=== PATIENT | male | born 1970 | race African-American/Black ===

== ENCOUNTER 2017-10-19 15:42 | Emergency (ER) | payer BC, SELFPAY ==
[2017-10-19] MEDS ORDERED: Water For Inject, Bacteriostat 30 ML ONE (18:25)
[2017-10-19] MEDS ORDERED: methylPREDNISolone Sod Succ/PF 125 MG/2 ML VIAL ONE (18:25)
[2017-10-19] MEDS ORDERED: Ketorolac Tromethamine 60 MG/2 ML VIAL ONE (18:25)
--- NOTE | 2017-10-19 18:34 | RAD ---
PA AND LATERAL VIEWS CHEST 10/19/17 HISTORY: Cough. FINDINGS: Comparison is made to exam of 05/24/14. There are changes of median sternotomy. The heart size is normal. The lungs are well expanded without focal areas of consolidation, pneumothorax or pleural effusions. No acute osseous abnormalities are seen. IMPRESSION: No radiographic evidence of acute cardiopulmonary process. POS: [facility]
== END 2017-10-19 18:49 | disposition home or self-care (01) ==
LOC: ERS 15:42
DX: J20.9 Acute bronchitis, unspecified (principal); I25.10 Atherosclerotic heart disease of native coronary artery without angina pectoris; E11.9 Type 2 diabetes mellitus without complications
CPT/HCPCS: 71046; 96372; J1885; J2930

== ENCOUNTER 2017-10-23 10:33 | Emergency (ER) | payer BC | END 2017-10-23 12:00 | disposition home or self-care (01) | LOC: ERS 10:33 | DX: B34.9 Viral infection, unspecified (principal); I10 Essential (primary) hypertension; I25.10 Atherosclerotic heart disease of native coronary artery without angina pectoris; E11.9 Type 2 diabetes mellitus without complications | CPT/HCPCS: 87804; 99283 ==

== ENCOUNTER 2018-03-21 13:27 | Emergency (ER) | payer BC ==
[2018-03-21] MEDS ORDERED: hydrALAZINE 20 MG/ML VIAL ONE (13:55)
[2018-03-21 14:15] LABS: #Lymphocytes 1.6 thou/uL (1.20-3.40); #Monocytes 0.6 thou/uL (0.11-0.59); #Neutrophils 3.4 thou/uL (1.40-6.50); %Basophils 0.4 % (0.0-1.0); %Eosinophils 0.7 % (0.0-10.0); %Monocytes 10.8 % (0.0-10.0); Hemoglobin 14.2 g/dL (14.0-18.0); Mean Corpuscular HGB CONC 32.6 g/dL (32.0-36.0); Mean Corpuscular Hemoglobin 29.6 pg (27.0-31.0); Mean Corpuscular Volume 90.8 fl (80.0-94.0); Mean Platelet Volume 7.5 fL (7.4-10.4); Platelet Count 308 thou/uL (130-400); RBC Distribution Width 11.5 % (11.5-14.5); Red Blood Cell (RBC) Count 4.78 mill/uL (4.70-6.10); White Blood Cell (WBC) Count 5.7 thou/uL (4.8-10.8)
--- NOTE | 2018-03-21 14:15 | CT ---
CT HEAD NONCONTRAST: HISTORY: Headache. FINDINGS: There is no evidence of acute intracranial hemorrhage or infarct. Ventricles appear normal in size, shape, and position. There is no mass effect or shift of midline structures. Mild chronic ischemic small-vessel disease within the frontal periventricular white matter. Visualized paranasal sinuses r emain well aerated. IMPRESSION: No acute intracranial abnormalities are demonstrated on noncontrast CT head. POS: [facility]
[2018-03-21 14:38] LABS: ALT (SGPT) 12 U/L (8-55); AST (SGOT) 23 U/L (5-34); Alkaline Phosphatase 50 U/L (40-150); Anion Gap 13 mmol/L (10-20); BUN (Urea Nitrogen) 15 mg/dL (8.9-20.6); Bilirubin, Total 0.5 mg/dL (0.2-1.2); Calc. Creatinine Clearance 0 mL/min (70-130); Calcium 9.1 mg/dL (7.8-10.44); Carbon Dioxide 23 mmol/L (22-29); Chloride 100 mmol/L (98-107); Estimated GFR-MDRD 90; Globulin 3.1 g/dL (2.4-3.5); Glucose 273 mg/dL (70-105); Potassium 4.4 mmol/L (3.5-5.1); Protein, Total 7.1 g/dL (6.0-8.3); Sodium 132 mmol/L (136-145)
[2018-03-21 14:43] LABS: CKMB 2.2 ng/mL (0-6.6); Troponin I Less than 0.010 ng/mL (< 0.028)
[2018-03-21] MEDS ORDERED: Ketorolac Tromethamine 30 MG/ML VIAL ONE (14:55)
== END 2018-03-21 15:08 | disposition home or self-care (01) ==
LOC: ERS 13:27
DX: I10 Essential (primary) hypertension (principal); R51 Headache; I25.10 Atherosclerotic heart disease of native coronary artery without angina pectoris; E11.9 Type 2 diabetes mellitus without complications; Z79.82 Long term (current) use of aspirin
CPT/HCPCS: 70450; 80053; 82553; 84484; 85025; 93005; 96374; 96375; J0360; J1885

== ENCOUNTER 2019-03-11 09:51 | Emergency (ER) | payer BC, SELFPAY ==
[2019-03-11] MEDS ORDERED: HYDROcodone/Acetaminophen 10/325 mg Tablet ONE (10:44)
[2019-03-11] MEDS ORDERED: Diazepam 5 MG TAB ONE (10:44)
[2019-03-11] MEDS ORDERED: Dexamethasone 4 MG TAB ONE (10:45)
[2019-03-11] MEDS ORDERED: PROPOFOL 20 ML ONE (11:58)
[2019-03-11] MEDS ORDERED: Propofol 500 MG/50 ML VIAL ONE (11:58)
== END 2019-03-11 12:20 | disposition home or self-care (01) ==
LOC: ERS 09:51
DX: M54.42 Lumbago with sciatica, left side (principal)
CPT/HCPCS: 99283; J2704; J8540

== ENCOUNTER 2019-10-25 11:23 | Emergency (ER) | payer SELFPAY ==
[2019-10-25] MEDS ORDERED: Proparacaine 0.5% Opth 15 ML BOT ONE (12:27)
[2019-10-25 12:43] LABS: #Eosinphils 0.1 thou/uL (0.0-0.7); #Lymphocytes 1.5 thou/uL (1.20-3.40); #Monocytes 0.9 thou/uL (0.11-0.59); #Neutrophils 4.3 thou/uL (1.40-6.50); %Basophils 0.7 % (0.0-1.0); %Eosinophils 1.2 % (0.0-10.0); %Lymphocytes 21.5 % (21.0-51.0); %Neutrophils 63.6 % (42.0-75.0); Mean Corpuscular HGB CONC 32.1 g/dL (32.0-36.0); Mean Corpuscular Hemoglobin 29.6 pg (27.0-31.0); Mean Corpuscular Volume 92.2 fL (78.0-98.0); Platelet Count 286 thou/uL (130-400); RBC Distribution Width 11.6 % (11.5-14.5); Red Blood Cell (RBC) Count 4.72 mill/uL (4.70-6.10); White Blood Cell (WBC) Count 6.8 thou/uL (4.8-10.8)
[2019-10-25 13:02] LABS: Anion Gap 9 mmol/L (10-20); BUN (Urea Nitrogen) 13 mg/dL (8.4-25.7); Calc. Creatinine Clearance 0 mL/min (70-130); Calcium 9.3 mg/dL (7.8-10.44); Carbon Dioxide 33 mmol/L (22-29); Chloride 101 mmol/L (98-107); Estimated GFR-MDRD 69; Glucose 281 mg/dL (70-105); Potassium 5.1 mmol/L (3.5-5.1); Sodium 138 mmol/L (136-145)
--- NOTE | 2019-10-25 13:04 | CT ---
CT BRAIN NONCONTRAST: DATE: 10/25/2019 HISTORY: 49-year-old male with pain and vision loss in left eye acutely. COMPARISON: 03/21/2018. FINDINGS: There is no midline shift or any other mass effect. There is no evidence of acute intracranial hemor rhage, large cortical infarct, obstructive hydrocephalus, or extraaxial fluid collection. The calvar ium is intact. There are chronic ischemic white matter changes of the cerebrum. There is no interval change since 03/21/2018. IMPRESSION: 1. No acute intracranial findings. 2. Chronic ischemic white matter changes (small vessel disease). jn r POS: [facility]
== END 2019-10-25 13:58 | disposition home or self-care (01) ==
LOC: ERS 11:23
DX: H54.62 Unqualified visual loss, left eye, normal vision right eye (principal); E11.9 Type 2 diabetes mellitus without complications; I10 Essential (primary) hypertension; Z79.899 Other long term (current) drug therapy; Z79.84 Long term (current) use of oral hypoglycemic drugs
CPT/HCPCS: 36415; 70450; 80048; 85025

== ENCOUNTER 2019-12-06 12:03 | Emergency (ER) | payer SELFPAY ==
[2019-12-06] MEDS ORDERED: Ketorolac Tromethamine 30 MG/ML VIAL ONE (13:26)
== END 2019-12-06 13:54 | disposition home or self-care (01) ==
LOC: ERS 12:03
DX: M54.41 Lumbago with sciatica, right side (principal); E11.9 Type 2 diabetes mellitus without complications; I25.10 Atherosclerotic heart disease of native coronary artery without angina pectoris; I10 Essential (primary) hypertension; J42 Unspecified chronic bronchitis; Z79.84 Long term (current) use of oral hypoglycemic drugs; Z79.899 Other long term (current) drug therapy
CPT/HCPCS: 96372; 99283; J1885

== ENCOUNTER 2019-12-13 22:18 | Emergency (ER) | payer SELFPAY ==
[2019-12-14] MEDS ORDERED: HYDROcodone/Acetaminophen 5/325 mg Tablet ONE (00:32)
== END 2019-12-14 00:46 | disposition home or self-care (01) ==
LOC: ERS 22:18
DX: H54.62 Unqualified visual loss, left eye, normal vision right eye (principal); I10 Essential (primary) hypertension; E11.9 Type 2 diabetes mellitus without complications; H57.12 Ocular pain, left eye; I25.10 Atherosclerotic heart disease of native coronary artery without angina pectoris; Z79.84 Long term (current) use of oral hypoglycemic drugs; Z79.899 Other long term (current) drug therapy
CPT/HCPCS: 99283

== ENCOUNTER 2021-04-16 10:12 | Outpatient (CLI) | payer OTHER, SELFPAY | END 2021-04-16 10:13 | disposition home or self-care (01) | LOC: BICRAD 10:12 | PROVIDERS: ATTEND Internal Medicine | DX: Z02.71 Encounter for disability determination (principal) | CPT/HCPCS: 71046; 72100 ==

== ENCOUNTER 2022-10-05 10:04 | Emergency (ER) | payer SELFPAY ==
[2022-10-05 11:51] LABS: #Eosinphils 0.1 thou/uL (0.0-0.7); #Lymphocytes 1.7 thou/uL (1.20-3.40); #Monocytes 1.4 thou/uL (0.11-0.59); #Neutrophils 7.8 thou/uL (1.40-6.50); %Basophils 0.3 % (0.0-1.0); %Eosinophils 0.5 % (0.0-10.0); %Lymphocytes 15.6 % (21.0-51.0); %Monocytes 12.3 % (0.0-10.0); %Neutrophils 71.3 % (42.0-75.0); Hemoglobin 11.9 g/dL (14.0-18.0); Mean Corpuscular HGB CONC 33.6 g/dL (32.0-36.0); Mean Corpuscular Hemoglobin 31.7 pg (27.0-31.0); Mean Corpuscular Volume 94.2 fl (78.0-98.0); Mean Platelet Volume 7.6 fL (7.4-10.4); Platelet Count 384 10x3/uL (130-400); RBC Distribution Width 11.3 % (11.5-14.5); Red Blood Cell (RBC) Count 3.76 mill/uL (4.70-6.10)
[2022-10-05] MEDS ORDERED: Albuterol 200 PUFF (6.7GM INHALER) ONE (11:56)
[2022-10-05 12:02] LABS: ALT (SGPT) 12 U/L (8-55); AST (SGOT) 14 U/L (5-34); Albumin 3.7 g/dL (3.5-5.0); Alkaline Phosphatase 54 U/L (40-110); Anion Gap 13 mmol/L (10-20); BUN (Urea Nitrogen) 10 mg/dL (8.4-25.7); Bilirubin, Total 0.5 mg/dL (0.2-1.2); Calc. Creatinine Clearance 0 mL/min (70-130); Calcium 9.1 mg/dL (7.8-10.44); Carbon Dioxide 28 mmol/L (22-29); Chloride 101 mmol/L (98-107); Estimated GFR 70; Globulin 3.4 g/dL (2.4-3.5); Glucose 221 mg/dL (70-105); Potassium 3.9 mmol/L (3.5-5.1); Protein, Total 7.1 g/dL (6.0-8.3); Sodium 138 mmol/L (136-145)
[2022-10-05 12:32] LABS: CKMB 0.8 ng/mL (0-6.6)
[2022-10-05 15:16] LABS: SARS-CoV-2 NAA Rapid Test Not Detected (NotDetected)
[2022-10-05 16:01] LABS: CKMB 0.7 ng/mL (0-6.6)
== END 2022-10-05 16:24 | disposition home or self-care (01) ==
LOC: ERS 10:04
DX: J18.9 Pneumonia, unspecified organism (principal); I10 Essential (primary) hypertension; E11.9 Type 2 diabetes mellitus without complications; Z20.822 Contact with and (suspected) exposure to COVID-19
CPT/HCPCS: 36415; 71045; 80053; 82553; 83880; 84484; 85025; 93005; 94664

== ENCOUNTER 2023-01-22 12:06 | Inpatient (IN) | payer SELFPAY ==
[2023-01-22] MEDS ORDERED: levETIRAcetam 500 MG/5 ML VIAL ONE (12:29)
[2023-01-22 12:48] LABS: #Lymphocytes 1.5 thou/uL (1.20-3.40); #Monocytes 0.8 thou/uL (0.11-0.59); #Neutrophils 4.4 thou/uL (1.40-6.50); %Basophils 0.5 % (0.0-1.0); %Eosinophils 0.4 % (0.0-10.0); %Lymphocytes 22.3 % (21.0-51.0); %Monocytes 11.2 % (0.0-10.0); %Neutrophils 65.6 % (42.0-75.0); Hemoglobin 12.8 g/dL (14.0-18.0); Mean Corpuscular HGB CONC 31.6 g/dL (32.0-36.0); Mean Platelet Volume 8.1 fL (7.4-10.4); Platelet Count 273 10x3/uL (130-400); RBC Distribution Width 11.3 % (11.5-14.5); Red Blood Cell (RBC) Count 4.25 mill/uL (4.70-6.10); White Blood Cell (WBC) Count 6.7 10x3/uL (4.8-10.8)
[2023-01-22 13:10] LABS: ALT (SGPT) 17 U/L (8-55); AST (SGOT) 19 U/L (5-34); Albumin 3.8 g/dL (3.5-5.0); Alkaline Phosphatase 37 U/L (40-110); Anion Gap 13 mmol/L (10-20); BUN (Urea Nitrogen) 18 mg/dL (8.4-25.7); Bilirubin, Total 0.7 mg/dL (0.2-1.2); Calc. Creatinine Clearance 0 mL/min (70-130); Calcium 8.9 mg/dL (7.8-10.44); Carbon Dioxide 26 mmol/L (22-29); Chloride 103 mmol/L (98-107); Estimated GFR 50; Globulin 2.8 g/dL (2.4-3.5); Glucose 168 mg/dL (70-105); Potassium 3.9 mmol/L (3.5-5.1); Protein, Total 6.6 g/dL (6.0-8.3); Sodium 138 mmol/L (136-145)
[2023-01-22] MEDS ORDERED: Acetaminophen 325 MG TAB PO PRN (14:23)
[2023-01-22] MEDS ORDERED: Ondansetron ODT 4 MG TAB PO PRN (14:23)
[2023-01-22] MEDS ORDERED: Acetaminophen 650 MG Suppository PR PRN (14:23)
[2023-01-22] MEDS ORDERED: Calcium Carbonate 500 MG ChewTAB PO PRN (14:23)
[2023-01-22] MEDS ORDERED: Ondansetron PF 4 MG/2 ML Vial IVP PRN (14:23)
[2023-01-22] MEDS ORDERED: Senokot S 8.6-50 MG TAB PO PRN (14:23)
[2023-01-22] MEDS ORDERED: Lorazepam 2 MG/ML VIAL SLOW IVP PRN (14:25)
[2023-01-22] MEDS ORDERED: Dextrose 50% Abboject 50 ML SYRINGE SLOW IVP PRN (14:39)
[2023-01-22] MEDS ORDERED: HumaLOG 300 UNITS/3 ML VIAL SC PRN ×2 (14:39)
[2023-01-22] MEDS ORDERED: Dextrose 5% in Water 1,000 ML IV PRN (14:39)
[2023-01-22] MEDS: Lactated Ringer's 1,000 ML IV SCH (15:23)
[2023-01-22] MEDS: metFORMIN 500 MG TAB PO SCH (17:58)
[2023-01-22] MEDS: Atorvastatin Calcium 40 MG TAB PO SCH (21:19)
[2023-01-22] MEDS: Carvedilol 3.125 MG TAB PO SCH (21:19)
[2023-01-22] MEDS: levETIRAcetam 500 MG/5 ML VIAL SLOW IVP SCH (21:19)
[2023-01-22] MEDS ORDERED: LORazepam 2 MG/ML SYR.(CARPUJECT) ONE (22:40)
[2023-01-23] MEDS ORDERED: Lorazepam 2 MG/ML VIAL SLOW IVP SCH (04:45)
[2023-01-23] MEDS: Lactated Ringer's 1,000 ML IV SCH ×2 (05:05→17:37)
[2023-01-23 07:02] LABS: #Lymphocytes 1.7 thou/uL (1.20-3.40); #Monocytes 0.9 thou/uL (0.11-0.59); #Neutrophils 4.6 thou/uL (1.40-6.50); %Basophils 0.1 % (0.0-1.0); %Eosinophils 0.6 % (0.0-10.0); %Monocytes 12.1 % (0.0-10.0); %Neutrophils 63.2 % (42.0-75.0); Hemoglobin 12.2 g/dL (14.0-18.0); Mean Corpuscular HGB CONC 32.7 g/dL (32.0-36.0); Mean Corpuscular Volume 94.9 fl (78.0-98.0); Mean Platelet Volume 8.1 fL (7.4-10.4); Platelet Count 256 10x3/uL (130-400); RBC Distribution Width 11.2 % (11.5-14.5); Red Blood Cell (RBC) Count 3.93 mill/uL (4.70-6.10); White Blood Cell (WBC) Count 7.2 10x3/uL (4.8-10.8)
[2023-01-23 07:21] LABS: ALT (SGPT) 15 U/L (8-55); AST (SGOT) 17 U/L (5-34); Albumin 3.7 g/dL (3.5-5.0); Alkaline Phosphatase 36 U/L (40-110); Anion Gap 15 mmol/L (10-20); BUN (Urea Nitrogen) 16 mg/dL (8.4-25.7); Bilirubin, Total 0.7 mg/dL (0.2-1.2); Calc. Creatinine Clearance 69 mL/min (70-130); Calcium 9.2 mg/dL (7.8-10.44); Carbon Dioxide 25 mmol/L (22-29); Chloride 103 mmol/L (98-107); Estimated GFR 66; Globulin 2.8 g/dL (2.4-3.5); Glucose 110 mg/dL (70-105); Magnesium 1.9 mg/dL (1.6-2.6); Potassium 3.6 mmol/L (3.5-5.1); Protein, Total 6.5 g/dL (6.0-8.3); Sodium 139 mmol/L (136-145)
[2023-01-23] MEDS: metFORMIN 500 MG TAB PO SCH ×2 (08:00→18:36)
[2023-01-23] MEDS ORDERED: Magnesium 2 GM/50 ML(in water) 2 GM in Premix Bag 1 BAG IVPB SCH (08:15)
[2023-01-23 08:22] LABS: Bacteria/HPF None Seen HPF (None Seen); Bilirubin Negative (Negative); Blood, Urine Trace (Negative); CAUTI Indications for Culture Alt mental st,lethar; Clarity Clear (Clear); Glucose, Urine (Dipstick) Normal (Negative); Ketone, Urine 20 mg/dL (Negative); Leukocyte Negative Leu/uL (Negative); Nitrite Negative (Negative); Protein, Urine (Dipstick) 70 mg/dL (Neg-Trace); RBC/HPF 0-3 HPF (0-3); Specific Gravity, Urine 1.022 (1.002-1.036); Squamous Epithelial 0-3 HPF (0-3); Urobilinogen Normal mg/dL (Less than 2); WBC/HPF 0-3 HPF (0-3); pH, Urine 5.5 (5.0-9.0)
[2023-01-23 08:33] LABS: Urine Culture Reflex No No
[2023-01-23] MEDS: Carvedilol 3.125 MG TAB PO SCH (09:00)
[2023-01-23] MEDS ORDERED: Aspirin 325 mg Enteric Coated Tablet PO SCH (09:00)
[2023-01-23] MEDS ORDERED: Magnesium 2 GM/50 ML BAG (IN WATER) ONE (09:23)
[2023-01-23] MEDS: Potassium Chloride 10 MEQ/100 ML PREMIX BAG IVPB SCH ×2 (09:34→11:51)
[2023-01-23] MEDS ORDERED: levETIRAcetam 500 MG/5 ML VIAL ONE (09:34)
[2023-01-23] MEDS ORDERED: Aspirin 325 MG TAB ONE (10:23)
[2023-01-23] MEDS: levETIRAcetam 500 MG/5 ML VIAL SLOW IVP SCH ×2 (10:31→21:39)
[2023-01-23] MEDS ORDERED: LORazepam 2 MG/ML SYR.(CARPUJECT) ONE (12:27)
[2023-01-23 18:14] VITALS: BMI 24.3
[2023-01-23] MEDS ORDERED: Meclizine HCl 25 MG TAB PO PRN (18:36)
[2023-01-23] MEDS: Lorazepam 2 MG/ML VIAL SLOW IVP PRN (20:48)
[2023-01-23] MEDS: Atorvastatin Calcium 40 MG TAB PO SCH (20:50)
[2023-01-23] MEDS: Dorzolamide HCl 2% Ophth Soln 10 ml Bottle L EYE SCH (21:43)
[2023-01-23] MEDS: Brimonidine Tartrate 0.2% Ophth Soln 5 ml Bottle L EYE SCH (21:45)
[2023-01-23] MEDS: Timolol 0.5% Ophth Soln 5 ml Bottle L EYE SCH (21:47)
[2023-01-23] MEDS: prednisoLONE 1% Ophth Susp 5 ml Bottle L EYE SCH (21:48)
[2023-01-24] MEDS: Lorazepam 2 MG/ML VIAL SLOW IVP PRN (00:55)
[2023-01-24 06:01] LABS: #Lymphocytes 1.4 thou/uL (1.20-3.40); #Monocytes 1.1 thou/uL (0.11-0.59); #Neutrophils 7.3 thou/uL (1.40-6.50); %Basophils 0.2 % (0.0-1.0); %Eosinophils 0.4 % (0.0-10.0); %Lymphocytes 14.6 % (21.0-51.0); %Neutrophils 73.9 % (42.0-75.0); Mean Corpuscular Hemoglobin 31.8 pg (27.0-31.0); Mean Corpuscular Volume 93.4 fl (78.0-98.0); Mean Platelet Volume 8.4 fL (7.4-10.4); Platelet Count 243 10x3/uL (130-400); RBC Distribution Width 11.2 % (11.5-14.5); White Blood Cell (WBC) Count 9.9 10x3/uL (4.8-10.8)
[2023-01-24 06:06] LABS: Hemoglobin A1c 5.8 % (4.0-6.0)
[2023-01-24 06:21] LABS: Anion Gap 13 mmol/L (10-20); BUN (Urea Nitrogen) 11 mg/dL (8.4-25.7); Calc. Creatinine Clearance 83 mL/min (70-130); Calcium 9.2 mg/dL (7.8-10.44); Carbon Dioxide 26 mmol/L (22-29); Cardiac Risk 4.9 (Less than 4.5); Chloride 102 mmol/L (98-107); Cholesterol 221 mg/dl (< 200 Desired); Estimated GFR 94; Glucose 118 mg/dL (70-105); HDL Cholesterol 45 mg/dL (>60 Neg Risk); LDL Cholesterol, Calculated 157 mg/dL; Potassium 3.6 mmol/L (3.5-5.1); Sodium 137 mmol/L (136-145); Triglycerides 95 mg/dL (Less than 150)
[2023-01-24] MEDS: Lactated Ringer's 1,000 ML IV SCH (06:23)
[2023-01-24] MEDS: Brimonidine Tartrate 0.2% Ophth Soln 5 ml Bottle L EYE SCH ×3 (06:25→21:27)
[2023-01-24] MEDS: levETIRAcetam 500 MG/5 ML VIAL SLOW IVP SCH ×2 (08:34→21:21)
[2023-01-24] MEDS: metFORMIN 500 MG TAB PO SCH ×2 (08:34→18:17)
[2023-01-24] MEDS: Aspirin 81 mg Enteric Coated Tablet PO SCH (08:35)
[2023-01-24] MEDS: Famotidine 20 MG TAB PO SCH (08:35)
[2023-01-24] MEDS: Carvedilol 6.25 MG TAB PO SCH ×2 (08:35→18:18)
[2023-01-24] MEDS: Lisinopril 20 MG TAB PO SCH (08:35)
[2023-01-24] MEDS: Timolol 0.5% Ophth Soln 5 ml Bottle L EYE SCH ×2 (08:36→21:27)
[2023-01-24] MEDS: prednisoLONE 1% Ophth Susp 5 ml Bottle L EYE SCH ×2 (08:37→21:27)
[2023-01-24] MEDS: Dorzolamide HCl 2% Ophth Soln 10 ml Bottle L EYE SCH ×3 (08:37→21:27)
[2023-01-24] MEDS ORDERED: CYCLOPENTOLATE HCL L EYE SCH (09:00)
[2023-01-24] MEDS: Atorvastatin Calcium 40 MG TAB PO SCH (21:21)
[2023-01-25] MEDS: Brimonidine Tartrate 0.2% Ophth Soln 5 ml Bottle L EYE SCH ×3 (05:15→22:12)
[2023-01-25 06:00] LABS: #Eosinphils 0.1 thou/uL (0.0-0.7); #Lymphocytes 1.6 thou/uL (1.20-3.40); #Monocytes 1.2 thou/uL (0.11-0.59); %Basophils 0.2 % (0.0-1.0); %Eosinophils 1.1 % (0.0-10.0); %Lymphocytes 15.7 % (21.0-51.0); %Monocytes 11.7 % (0.0-10.0); %Neutrophils 71.3 % (42.0-75.0); Hemoglobin 11.9 g/dL (14.0-18.0); Mean Corpuscular HGB CONC 33.7 g/dL (32.0-36.0); Mean Corpuscular Hemoglobin 31.8 pg (27.0-31.0); Mean Corpuscular Volume 94.3 fl (78.0-98.0); Mean Platelet Volume 8.2 fL (7.4-10.4); Platelet Count 232 10x3/uL (130-400); RBC Distribution Width 11.2 % (11.5-14.5); Red Blood Cell (RBC) Count 3.74 mill/uL (4.70-6.10); White Blood Cell (WBC) Count 9.8 10x3/uL (4.8-10.8)
[2023-01-25 06:15] LABS: ALT (SGPT) 15 U/L (8-55); AST (SGOT) 16 U/L (5-34); Albumin 3.6 g/dL (3.5-5.0); Alkaline Phosphatase 38 U/L (40-110); Anion Gap 13 mmol/L (10-20); BUN (Urea Nitrogen) 14 mg/dL (8.4-25.7); Bilirubin, Total 0.8 mg/dL (0.2-1.2); Calc. Creatinine Clearance 75 mL/min (70-130); Carbon Dioxide 26 mmol/L (22-29); Chloride 103 mmol/L (98-107); Estimated GFR 83; Globulin 2.7 g/dL (2.4-3.5); Glucose 117 mg/dL (70-105); Potassium 3.8 mmol/L (3.5-5.1); Protein, Total 6.3 g/dL (6.0-8.3); Sodium 138 mmol/L (136-145)
[2023-01-25] MEDS: Carvedilol 6.25 MG TAB PO SCH ×2 (08:41→16:45)
[2023-01-25] MEDS: Lisinopril 20 MG TAB PO SCH (08:42)
[2023-01-25] MEDS: levETIRAcetam 500 MG/5 ML VIAL SLOW IVP SCH ×2 (08:42→20:28)
[2023-01-25] MEDS: metFORMIN 500 MG TAB PO SCH ×2 (08:42→16:45)
[2023-01-25] MEDS: Aspirin 81 mg Enteric Coated Tablet PO SCH (08:42)
[2023-01-25] MEDS: prednisoLONE 1% Ophth Susp 5 ml Bottle L EYE SCH ×2 (08:47→20:28)
[2023-01-25] MEDS: Dorzolamide HCl 2% Ophth Soln 10 ml Bottle L EYE SCH ×3 (08:50→20:34)
[2023-01-25] MEDS: Timolol 0.5% Ophth Soln 5 ml Bottle L EYE SCH ×2 (09:25→20:33)
[2023-01-25] MEDS: Famotidine 20 MG TAB PO SCH (09:26)
[2023-01-25] MEDS: Atorvastatin Calcium 40 MG TAB PO SCH (20:32)
[2023-01-26 00:05] LABS: GC N.gonorrhoeae PCR,UrineVOID *Indeterminate (NotDetected)
[2023-01-26 05:16] LABS: #Eosinphils 0.1 thou/uL (0.0-0.7); #Lymphocytes 1.8 thou/uL (1.20-3.40); #Monocytes 1.1 thou/uL (0.11-0.59); #Neutrophils 4.4 thou/uL (1.40-6.50); %Basophils 0.5 % (0.0-1.0); %Eosinophils 0.7 % (0.0-10.0); %Lymphocytes 24.8 % (21.0-51.0); %Monocytes 14.9 % (0.0-10.0); %Neutrophils 59.1 % (42.0-75.0); Hemoglobin 11.3 g/dL (14.0-18.0); Mean Corpuscular HGB CONC 32.6 g/dL (32.0-36.0); Mean Corpuscular Hemoglobin 30.5 pg (27.0-31.0); Mean Corpuscular Volume 93.5 fl (78.0-98.0); Mean Platelet Volume 8.6 fL (7.4-10.4); Platelet Count 232 10x3/uL (130-400); RBC Distribution Width 11.1 % (11.5-14.5); White Blood Cell (WBC) Count 7.4 10x3/uL (4.8-10.8)
[2023-01-26 05:53] LABS: ALT (SGPT) 13 U/L (8-55); AST (SGOT) 16 U/L (5-34); Albumin 3.6 g/dL (3.5-5.0); Alkaline Phosphatase 36 U/L (40-110); Anion Gap 14 mmol/L (10-20); BUN (Urea Nitrogen) 14 mg/dL (8.4-25.7); Bilirubin, Total 0.9 mg/dL (0.2-1.2); Calc. Creatinine Clearance 73 mL/min (70-130); Calcium 9.1 mg/dL (7.8-10.44); Carbon Dioxide 24 mmol/L (22-29); Chloride 104 mmol/L (98-107); Estimated GFR 82; Globulin 2.8 g/dL (2.4-3.5); Glucose 94 mg/dL (70-105); Potassium 3.5 mmol/L (3.5-5.1); Protein, Total 6.4 g/dL (6.0-8.3); Sodium 138 mmol/L (136-145)
[2023-01-26] MEDS: Brimonidine Tartrate 0.2% Ophth Soln 5 ml Bottle L EYE SCH ×3 (06:03→21:07)
[2023-01-26] MEDS: metFORMIN 500 MG TAB PO SCH ×2 (08:58→18:43)
[2023-01-26] MEDS: Carvedilol 6.25 MG TAB PO SCH ×2 (08:58→18:43)
[2023-01-26] MEDS: levETIRAcetam 500 MG/5 ML VIAL SLOW IVP SCH ×2 (08:59→21:07)
[2023-01-26] MEDS: Lisinopril 20 MG TAB PO SCH (08:59)
[2023-01-26] MEDS: Famotidine 20 MG TAB PO SCH (08:59)
[2023-01-26] MEDS: Aspirin 81 mg Enteric Coated Tablet PO SCH (08:59)
[2023-01-26] MEDS: prednisoLONE 1% Ophth Susp 5 ml Bottle L EYE SCH ×2 (09:00→21:06)
[2023-01-26] MEDS: Dorzolamide HCl 2% Ophth Soln 10 ml Bottle L EYE SCH ×3 (09:01→21:07)
[2023-01-26] MEDS: Timolol 0.5% Ophth Soln 5 ml Bottle L EYE SCH ×2 (09:01→21:06)
[2023-01-26 11:06] LABS: Syphilis Antibody Nonreactive (Nonreactive); Syphilis Antibody Index 0.03 S/CO (<1.00 Non-Reactive)
[2023-01-26] MEDS: Atorvastatin Calcium 40 MG TAB PO SCH (21:05)
[2023-01-27 05:27] LABS: #Eosinphils 0.1 thou/uL (0.0-0.7); #Lymphocytes 1.8 thou/uL (1.20-3.40); #Monocytes 1.1 thou/uL (0.11-0.59); #Neutrophils 4.8 thou/uL (1.40-6.50); %Basophils 0.1 % (0.0-1.0); %Eosinophils 0.9 % (0.0-10.0); %Monocytes 14.3 % (0.0-10.0); %Neutrophils 61.6 % (42.0-75.0); Hemoglobin 11.6 g/dL (14.0-18.0); Mean Corpuscular HGB CONC 32.8 g/dL (32.0-36.0); Mean Corpuscular Hemoglobin 30.7 pg (27.0-31.0); Mean Corpuscular Volume 93.7 fl (78.0-98.0); Mean Platelet Volume 8.3 fL (7.4-10.4); Platelet Count 248 10x3/uL (130-400); Red Blood Cell (RBC) Count 3.79 mill/uL (4.70-6.10); White Blood Cell (WBC) Count 7.7 10x3/uL (4.8-10.8)
[2023-01-27] MEDS: Brimonidine Tartrate 0.2% Ophth Soln 5 ml Bottle L EYE SCH (05:28)
[2023-01-27 05:54] LABS: ALT (SGPT) 13 U/L (8-55); AST (SGOT) 15 U/L (5-34); Albumin 3.8 g/dL (3.5-5.0); Alkaline Phosphatase 37 U/L (40-110); Anion Gap 13 mmol/L (10-20); BUN (Urea Nitrogen) 12 mg/dL (8.4-25.7); Bilirubin, Total 0.9 mg/dL (0.2-1.2); Calc. Creatinine Clearance 76 mL/min (70-130); Calcium 9.2 mg/dL (7.8-10.44); Carbon Dioxide 25 mmol/L (22-29); Chloride 105 mmol/L (98-107); Estimated GFR 84; Globulin 2.9 g/dL (2.4-3.5); Glucose 97 mg/dL (70-105); Potassium 3.5 mmol/L (3.5-5.1); Protein, Total 6.7 g/dL (6.0-8.3); Sodium 139 mmol/L (136-145)
[2023-01-27] MEDS ORDERED: Amlodipine 5 MG TAB PO SCH (09:00)
[2023-01-27] MEDS ORDERED: levETIRAcetam 500 MG/5 ML VIAL SLOW IVP SCH ×2 (09:15→21:00)
[2023-01-27] MEDS: metFORMIN 500 MG TAB PO SCH (09:46)
[2023-01-27] MEDS: Aspirin 81 mg Enteric Coated Tablet PO SCH (09:47)
[2023-01-27] MEDS: Carvedilol 6.25 MG TAB PO SCH (09:47)
[2023-01-27] MEDS: Famotidine 20 MG TAB PO SCH (09:47)
[2023-01-27] MEDS: Lisinopril 20 MG TAB PO SCH (09:47)
[2023-01-27] MEDS: Timolol 0.5% Ophth Soln 5 ml Bottle L EYE SCH (09:48)
[2023-01-27] MEDS: prednisoLONE 1% Ophth Susp 5 ml Bottle L EYE SCH (09:48)
[2023-01-27] MEDS: Dorzolamide HCl 2% Ophth Soln 10 ml Bottle L EYE SCH (09:49)
[2023-01-27 12:19] VITALS: BP 176/95; TEMP 97.7
== END 2023-01-27 14:56 | disposition home or self-care (01) | DRG 65 ==
LOC: SUATTDRO 12:06 → ERS 12:06 → ERHOLD 15:00 → OBSVTOIN 01-23 11:23 → NEURO 01-23 17:22
PROVIDERS: ADMIT Internal Medicine; ATTEND Internal Medicine
DX: I63.9 Cerebral infarction, unspecified (principal); G81.94 Hemiplegia, unspecified affecting left nondominant side; N17.9 Acute kidney failure, unspecified; I42.9 Cardiomyopathy, unspecified; R56.9 Unspecified convulsions; I10 Essential (primary) hypertension; E78.5 Hyperlipidemia, unspecified; D64.9 Anemia, unspecified; R45.1 Restlessness and agitation; R47.1 Dysarthria and anarthria; E11.9 Type 2 diabetes mellitus without complications; I25.10 Atherosclerotic heart disease of native coronary artery without angina pectoris; Z95.1 Presence of aortocoronary bypass graft; Z79.82 Long term (current) use of aspirin; Z79.84 Long term (current) use of oral hypoglycemic drugs; Z79.899 Other long term (current) drug therapy; Z82.49 Family history of ischemic heart disease and other diseases of the circulatory system
CPT/HCPCS: 36415; 36416; 70450; 70551; 80048; 80053; 80061; 81001; 83036; 83605; 83735; 84146; 85025; 86695; 86696; 86780; 87591; 93005; 95712; 95819; 95957; 96374; 96375; 96376; G0378; J1650; J1953; J2060; J3475; J3480; J7120

== ENCOUNTER 2023-02-01 23:48 | Observation (INO) | payer SELFPAY ==
[2023-02-02 00:48] LABS: Hemoglobin 12.3 g/dL (14.0-18.0); Mean Corpuscular HGB CONC 34.1 g/dL (32.0-36.0); Mean Corpuscular Hemoglobin 31.1 pg (27.0-31.0); Mean Platelet Volume 7.8 fL (7.4-10.4); Platelet Count 392 10x3/uL (130-400); RBC Distribution Width 11.2 % (11.5-14.5); Red Blood Cell (RBC) Count 3.97 mill/uL (4.70-6.10); White Blood Cell (WBC) Count 8.6 10x3/uL (4.8-10.8)
[2023-02-02 00:53] LABS: CK (CPK) 103 U/L (30-200); CRP (Inflammatory) Less than 0.50 mg/dL (= or < 0.5)
[2023-02-02 00:54] LABS: ALT (SGPT) 15 U/L (8-55); AST (SGOT) 16 U/L (5-34); Alkaline Phosphatase 42 U/L (40-110); Anion Gap 16 mmol/L (10-20); BUN (Urea Nitrogen) 14 mg/dL (8.4-25.7); Bilirubin, Total 0.8 mg/dL (0.2-1.2); Calc. Creatinine Clearance 0 mL/min (70-130); Calcium 8.8 mg/dL (7.8-10.44); Carbon Dioxide 25 mmol/L (22-29); Chloride 101 mmol/L (98-107); Estimated GFR 73; Globulin 3.2 g/dL (2.4-3.5); Glucose 125 mg/dL (70-105); Potassium 3.6 mmol/L (3.5-5.1); Protein, Total 7.2 g/dL (6.0-8.3); Sodium 138 mmol/L (136-145)
[2023-02-02 00:58] LABS: #Lymphocytes 2.1 thou/uL (1.20-3.40); #Monocytes 1.2 thou/uL (0.11-0.59); #Neutrophils 4.9 thou/uL (1.40-6.50); %Basophils 0.3 % (0.0-1.0); %Eosinophils 0.4 % (0.0-10.0); %Lymphocytes 25.4 % (21.0-51.0); %Monocytes 14.1 % (0.0-10.0); %Neutrophils 59.7 % (42.0-75.0)
[2023-02-02 07:31] VITALS: TEMP 97.4
[2023-02-02 08:12] VITALS: BMI 20.5
[2023-02-02] MEDS ORDERED: Senokot S 8.6-50 MG TAB PO PRN (10:46)
[2023-02-02] MEDS ORDERED: Ondansetron PF 4 MG/2 ML Vial IVP PRN (10:47)
[2023-02-02] MEDS ORDERED: Acetaminophen 325 MG TAB PO PRN (10:47)
[2023-02-02] MEDS ORDERED: Lisinopril 20 MG TAB PO SCH (11:00)
[2023-02-02] MEDS ORDERED: levETIRAcetam 500 MG TAB PO SCH ×2 (11:00→21:00)
[2023-02-02] MEDS ORDERED: Timolol 0.5% Ophth Soln 5 ml Bottle L EYE SCH ×2 (14:00→21:00)
[2023-02-02] MEDS ORDERED: Brimonidine Tartrate 0.2% Ophth Soln 5 ml Bottle L EYE SCH (14:00)
[2023-02-02] MEDS ORDERED: Dorzolamide HCl 2% Ophth Soln 10 ml Bottle L EYE SCH (15:00)
[2023-02-02 16:25] VITALS: BP 162/96
[2023-02-02] MEDS ORDERED: Carvedilol 25 MG TAB PO SCH (17:00)
[2023-02-02] MEDS ORDERED: prednisoLONE 1% Ophth Susp 5 ml Bottle L EYE SCH (21:00)
[2023-02-02] MEDS ORDERED: Atorvastatin Calcium 40 MG TAB PO SCH (21:00)
[2023-02-02] MEDS ORDERED: Famotidine 20 MG TAB PO SCH (21:00)
[2023-02-03] MEDS ORDERED: Lisinopril 20 MG TAB PO SCH (09:00)
[2023-02-03] MEDS ORDERED: Aspirin 81 mg Enteric Coated Tablet PO SCH (09:00)
[2023-02-03] MEDS ORDERED: Hydrochlorothiazide 25 MG TAB PO SCH (09:00)
== END 2023-02-02 16:56 | disposition home or self-care (01) ==
LOC: ERS 23:48 → T4-A 02-02 06:49
PROVIDERS: ADMIT Internal Medicine; ATTEND Internal Medicine
DX: R06.00 Dyspnea, unspecified (principal); G93.41 Metabolic encephalopathy; G40.909 Epilepsy, unspecified, not intractable, without status epilepticus; I10 Essential (primary) hypertension; I25.10 Atherosclerotic heart disease of native coronary artery without angina pectoris; E11.9 Type 2 diabetes mellitus without complications; I69.354 Hemiplegia and hemiparesis following cerebral infarction affecting left non-dominant side; Z79.82 Long term (current) use of aspirin; Z79.84 Long term (current) use of oral hypoglycemic drugs; Z79.899 Other long term (current) drug therapy; Z95.1 Presence of aortocoronary bypass graft
CPT/HCPCS: 36415; 36416; 71045; 71275; 80053; 82550; 83880; 84484; 85025; 86140; 93005; G0378

== ENCOUNTER 2023-10-23 09:55 | Inpatient (IN) | payer MEDICARE, OTHER, SELFPAY ==
[2023-10-23 10:30] LABS: Hematocrit 36.7 % (42.0-52.0); Hemoglobin 11.8 g/dL (14.0-18.0); Manual Diff?? YES; Mean Corpuscular HGB CONC 32.2 g/dL (32.0-36.0); Mean Corpuscular Hemoglobin 29.6 pg (27.0-31.0); Mean Platelet Volume 9.8 fL (7.4-10.4); Platelet Count 326 10x3/uL (130-400); RBC Distribution Width 12.2 % (11.5-14.5); Red Blood Cell (RBC) Count 3.99 mill/uL (4.70-6.10); White Blood Cell (WBC) Count 11.9 10x3/uL (4.8-10.8)
[2023-10-23 10:56] LABS: Delete Auto Diff?? YES
[2023-10-23 10:59] LABS: Troponin I Less than 0.010 ng/mL (< 0.028)
[2023-10-23 11:04] LABS: ALT (SGPT) 20 U/L (8-55); AST (SGOT) 19 U/L (5-34); Albumin 4.4 g/dL (3.5-5.0); Alkaline Phosphatase 48 U/L (40-110); Anion Gap 14 mmol/L (10-20); BUN (Urea Nitrogen) 15 mg/dL (8.4-25.7); Bilirubin, Total 0.8 mg/dL (0.2-1.2); Calc. Creatinine Clearance 0 mL/min (70-130); Calcium 9.6 mg/dL (7.8-10.44); Carbon Dioxide 25 mmol/L (22-29); Chloride 103 mmol/L (98-107); Estimated GFR 63; Globulin 3.2 g/dL (2.4-3.5); Glucose 150 mg/dL (70-105); Lipase 37 U/L (8-78); Potassium 4.4 mmol/L (3.5-5.1); Protein, Total 7.6 g/dL (6.0-8.3); Sodium 138 mmol/L (136-145)
[2023-10-23 11:27] LABS: CellaVision Operator ID LAB.KW3; Large Platelets 7.8 % (0-5); Lymphocytes 5 % (21-51); Monocytes 6 % (0-10); Neutrophil 89 % (42-75); Platelet Adequacy Comment Platelets Normal; RBC Morphology Within Normal Limits; Total Cell Count 103
[2023-10-23] MEDS ORDERED: Iopamidol-370 76% 500 ML MDV (1 ML CHARGE) ONE (12:33)
[2023-10-23 12:39] VITALS: BMI 20.1
[2023-10-23] MEDS ORDERED: Glucagon 1 MG/ML KIT IM PRN (13:04)
[2023-10-23] MEDS ORDERED: Dextrose 50% Abboject 50 ML SYRINGE SLOW IVP PRN (13:04)
[2023-10-23] MEDS ORDERED: Acetaminophen 650 MG Suppository PR PRN (13:04)
[2023-10-23] MEDS ORDERED: Dextrose 5% in Water 1,000 ML IV PRN (13:04)
[2023-10-23] MEDS ORDERED: HumaLOG 300 UNITS/3 ML VIAL SC PRN ×2 (13:04)
[2023-10-23] MEDS ORDERED: Acetaminophen 325 MG TAB PO PRN ×2 (13:04→13:15)
[2023-10-23] MEDS ORDERED: Ondansetron PF 4 MG/2 ML Vial IVP PRN ×2 (13:04→13:15)
[2023-10-23] MEDS ORDERED: Ondansetron ODT 4 MG TAB PO PRN (13:04)
[2023-10-23] MEDS ORDERED: Ondansetron ODT 4 MG TAB SL PRN (13:15)
[2023-10-23] MEDS ORDERED: Lactated Ringer's 1,000 ML IV SCH (13:15)
[2023-10-23] MEDS: Sodium Chloride 0.9% 1,000 ML IV SCH ×2 (13:49→20:25)
[2023-10-23] MEDS: Timolol 0.5% Ophth Soln 5 ml Bottle L EYE SCH ×2 (13:49→20:30)
[2023-10-23] MEDS: Brimonidine Tartrate 0.2% Ophth Soln 5 ml Bottle L EYE SCH ×2 (13:49→20:30)
[2023-10-23] MEDS: hydrALAZINE 20 MG/ML VIAL SLOW IVP PRN (13:50)
[2023-10-23] MEDS: levETIRAcetam 500 MG (5 mL) VIAL SLOW IVP SCH (20:27)
[2023-10-24] MEDS: Sodium Chloride 0.9% 1,000 ML IV SCH ×2 (06:01→12:00)
[2023-10-24] MEDS: Brimonidine Tartrate 0.2% Ophth Soln 5 ml Bottle L EYE SCH ×3 (06:01→20:41)
[2023-10-24] MEDS: Timolol 0.5% Ophth Soln 5 ml Bottle L EYE SCH (06:01)
[2023-10-24 06:35] LABS: #Eosinphils 0.1 thou/uL (0.0-0.7); #Neutrophils 5.3 thou/uL (1.40-6.50); %Basophils 0.3 % (0.0-1.0); %Eosinophils 0.8 % (0.0-10.0); %Lymphocytes 18.1 % (21.0-51.0); %Neutrophils 67.5 % (42.0-75.0); Hematocrit 32.6 % (42.0-52.0); Hemoglobin 10.4 g/dL (14.0-18.0); Mean Corpuscular HGB CONC 31.9 g/dL (32.0-36.0); Mean Corpuscular Hemoglobin 29.6 pg (27.0-31.0); Mean Corpuscular Volume 92.9 fl (78.0-98.0); Mean Platelet Volume 10.5 fL (7.4-10.4); Platelet Count 295 10x3/uL (130-400); RBC Distribution Width 12.6 % (11.5-14.5); Red Blood Cell (RBC) Count 3.51 mill/uL (4.70-6.10); White Blood Cell (WBC) Count 7.8 10x3/uL (4.8-10.8)
[2023-10-24 06:58] LABS: Anion Gap 14 mmol/L (10-20); BUN (Urea Nitrogen) 15 mg/dL (8.4-25.7); Calc. Creatinine Clearance 54 mL/min (70-130); Calcium 8.3 mg/dL (7.8-10.44); Carbon Dioxide 21 mmol/L (22-29); Chloride 109 mmol/L (98-107); Estimated GFR 68; Glucose 73 mg/dL (70-105); Potassium 3.8 mmol/L (3.5-5.1); Sodium 140 mmol/L (136-145)
[2023-10-24] MEDS: levETIRAcetam 500 MG (5 mL) VIAL SLOW IVP SCH ×2 (08:57→20:40)
[2023-10-24] MEDS ORDERED: Mineral Oil ENEMA PR SCH (10:15)
[2023-10-24] MEDS ORDERED: Senokot S 8.6-50 MG TAB PO SCH (11:15)
[2023-10-24] MEDS: Dorzolamide HCl 2% Ophth (10 mL) Bottle L EYE SCH ×2 (16:01→21:06)
[2023-10-24] MEDS: Dextrose 5 % And 0.9 % NaCl 1,000 ML IV SCH (17:33)
[2023-10-24] MEDS: hydrALAZINE 20 MG/ML VIAL SLOW IVP PRN (17:33)
[2023-10-24] MEDS: Carvedilol 25 MG TAB PO SCH (17:33)
[2023-10-24] MEDS: Senokot S 8.6-50 MG TAB PO SCH (20:40)
[2023-10-24] MEDS ORDERED: Timolol 0.5% Ophth Soln 5 ml Bottle L EYE SCH (21:00)
[2023-10-24] MEDS: prednisoLONE 1% Ophth Susp 5 ml Bottle L EYE SCH (21:06)
[2023-10-25] MEDS: hydrALAZINE 20 MG/ML VIAL SLOW IVP PRN (03:36)
[2023-10-25] MEDS: Dextrose 5 % And 0.9 % NaCl 1,000 ML IV SCH (03:39)
[2023-10-25] MEDS: Brimonidine Tartrate 0.2% Ophth Soln 5 ml Bottle L EYE SCH (05:30)
[2023-10-25 08:50] VITALS: BP 168/90; TEMP 97.6
[2023-10-25 08:51] LABS: #Eosinphils 0.1 thou/uL (0.0-0.7); #Monocytes 1.1 thou/uL (0.11-0.59); #Neutrophils 5.2 thou/uL (1.40-6.50); %Basophils 0.1 % (0.0-1.0); %Eosinophils 1.2 % (0.0-10.0); %Lymphocytes 20.7 % (21.0-51.0); %Monocytes 13.4 % (0.0-10.0); %Neutrophils 64.4 % (42.0-75.0); Hematocrit 34.1 % (42.0-52.0); Hemoglobin 10.7 g/dL (14.0-18.0); Mean Corpuscular HGB CONC 31.4 g/dL (32.0-36.0); Mean Corpuscular Hemoglobin 29.6 pg (27.0-31.0); Mean Corpuscular Volume 94.5 fl (78.0-98.0); Mean Platelet Volume 10.4 fL (7.4-10.4); Platelet Count 303 10x3/uL (130-400); RBC Distribution Width 12.5 % (11.5-14.5); Red Blood Cell (RBC) Count 3.61 mill/uL (4.70-6.10); White Blood Cell (WBC) Count 8.1 10x3/uL (4.8-10.8)
[2023-10-25] MEDS ORDERED: Aspirin 81 mg Enteric Coated Tablet PO SCH (09:00)
[2023-10-25 09:12] LABS: Anion Gap 11 mmol/L (10-20); BUN (Urea Nitrogen) 10 mg/dL (8.4-25.7); Calc. Creatinine Clearance 68 mL/min (70-130); Calcium 8.4 mg/dL (7.8-10.44); Carbon Dioxide 21 mmol/L (22-29); Chloride 109 mmol/L (98-107); Estimated GFR 90; Glucose 169 mg/dL (70-105); Potassium 3.6 mmol/L (3.5-5.1); Sodium 137 mmol/L (136-145)
[2023-10-25] MEDS: Senokot S 8.6-50 MG TAB PO SCH (09:17)
[2023-10-25] MEDS: Dorzolamide HCl 2% Ophth (10 mL) Bottle L EYE SCH (09:18)
[2023-10-25] MEDS: levETIRAcetam 500 MG (5 mL) VIAL SLOW IVP SCH (09:18)
[2023-10-25] MEDS: prednisoLONE 1% Ophth Susp 5 ml Bottle L EYE SCH (09:18)
[2023-10-25] MEDS: Carvedilol 25 MG TAB PO SCH (09:18)
== END 2023-10-25 09:54 | disposition home or self-care (01) | DRG 389 ==
LOC: ERS 09:55 → T4-A 12:22 → OBSVTOIN 10-24 10:43
PROVIDERS: ADMIT Internal Medicine; ATTEND Family Medicine
DX: K56.7 Ileus, unspecified (principal); N17.9 Acute kidney failure, unspecified; K56.41 Fecal impaction; E11.9 Type 2 diabetes mellitus without complications; I10 Essential (primary) hypertension; E78.5 Hyperlipidemia, unspecified; I25.10 Atherosclerotic heart disease of native coronary artery without angina pectoris; K21.9 Gastro-esophageal reflux disease without esophagitis; G40.909 Epilepsy, unspecified, not intractable, without status epilepticus; Z79.899 Other long term (current) drug therapy; Z79.82 Long term (current) use of aspirin; Z79.84 Long term (current) use of oral hypoglycemic drugs; Z95.2 Presence of prosthetic heart valve; I69.398 Other sequelae of cerebral infarction
CPT/HCPCS: 36415; 36416; 71045; 74177; 80048; 80053; 83605; 83690; 84484; 85025; 93005; 94760; 96374; 96375; 96376; G0378; J0360; J1953; J7042; J7050; Q9967

== ENCOUNTER 2024-02-15 14:10 | Inpatient (IN) | payer MEDICARE, OTHER ==
[~2024-02-15 14:10] MED LIST: Iopamidol-370 76% 500 ML MDV (1 ML CHARGE) ONE
[2024-02-15 14:52] LABS: #Basophils Less than 0.03 10x3/uL (0.0-0.2); %Basophils 0.1 % (0.0-1.0); %Eosinophils 0.8 % (0.0-10.0); %Lymphocytes 9.8 % (21.0-51.0); %Monocytes 10.3 % (0.0-10.0); %Neutrophils 78.6 % (42.0-75.0); Hematocrit 27.5 % (42.0-52.0); Mean Corpuscular HGB CONC 32.7 g/dL (32.0-36.0); Mean Corpuscular Hemoglobin 30.9 pg (27.0-31.0); Mean Corpuscular Volume 94.5 fL (78.0-98.0); Mean Platelet Volume 10.1 fL (7.4-10.4); Platelet Count 300 10x3/uL (130-400); RBC Distribution Width 12.8 % (11.5-14.5); Red Blood Cell (RBC) Count 2.91 mill/uL (4.70-6.10)
[2024-02-15 15:13] LABS: Globulin 2.9 g/dL (2.4-3.5)
[2024-02-15 15:17] LABS: Acetaminophen Less than 10 mcg/mL (10.0-30.0); Alcohol Less than 10.0 mg/dL (Less than 10); Salicylate Less than 8.0 mg/dL (15.0-30.0)
[2024-02-15 15:18] LABS: ALT (SGPT) 11 U/L (8-55); AST (SGOT) 12 U/L (5-34); Albumin 3.1 g/dL (3.5-5.0); Alkaline Phosphatase 41 U/L (40-110); Anion Gap 14 mmol/L (10-20); BUN (Urea Nitrogen) 13 mg/dL (8.4-25.7); Bilirubin, Total 0.3 mg/dL (0.2-1.2); Calc. Creatinine Clearance 0 mL/min (70-130); Calcium 8.4 mg/dL (7.8-10.44); Carbon Dioxide 26 mmol/L (22-29); Chloride 104 mmol/L (98-107); Estimated GFR 69; Glucose 171 mg/dL (70-105); Potassium 4.1 mmol/L (3.5-5.1); Sodium 140 mmol/L (136-145)
[2024-02-15 15:22] LABS: Prothrombin Time 13.7 sec (12.0-14.7)
[2024-02-15 15:26] LABS: PTT 22.2 sec (22.9-36.1)
[2024-02-15] MEDS ORDERED: Dextrose 5% in Water 1,000 ML IV PRN (16:30)
[2024-02-15] MEDS ORDERED: Glucagon 1 MG/ML KIT IM PRN (16:30)
[2024-02-15] MEDS ORDERED: hydrALAZINE 20 MG/ML VIAL SLOW IVP PRN (16:30)
[2024-02-15] MEDS ORDERED: Insulin Regular 300 UNITS/3 ML VIAL SC PRN ×2 (16:30)
[2024-02-15] MEDS ORDERED: Dextrose 50% Abboject 50 ML SYRINGE SLOW IVP PRN (16:30)
[2024-02-15] MEDS ORDERED: Acetaminophen 650 MG Suppository PR PRN (16:30)
[2024-02-15] MEDS: Aspirin 300 MG Suppository PR SCH (16:37)
[2024-02-15 16:39] VITALS: BMI 15.7
[2024-02-15 16:41] LABS: Troponin I Less than 0.010 ng/mL (< 0.028)
[2024-02-15] MEDS: Sodium Chloride 0.9% 1,000 ML IV SCH (17:19)
[2024-02-15 20:13] LABS: Bilirubin Negative (Negative); Blood, Urine 2+ (Negative); Clarity Extra Turbid (Clear); Glucose, Urine (Dipstick) Normal (Negative); Ketone, Urine Negative (Negative); Leukocyte 500 Leu/uL (Negative); Nitrite Negative (Negative); Protein, Urine (Dipstick) 100 mg/dL (Neg-Trace); Urobilinogen Normal mg/dL (Less than 2); pH, Urine 6.5 (5.0-9.0)
[2024-02-15 20:35] LABS: Specific Gravity, Urine 1.045 (1.002-1.036)
[2024-02-15 20:36] LABS: Squamous Epithelial 0-3 HPF (0-3); WBC/HPF Greater than 50 HPF (0-3)
[2024-02-15 20:37] LABS: Bacteria/HPF 4+ HPF (None Seen)
[2024-02-15] MEDS: Dorzolamide HCl 2% Ophth (10 mL) Bottle L EYE SCH (22:17)
[2024-02-15] MEDS: levETIRAcetam 500 MG (5 mL) VIAL SLOW IVP SCH (22:18)
[2024-02-15] MEDS: Brimonidine Tartrate 0.2% Ophth Soln 5 ml Bottle L EYE SCH (22:34)
[2024-02-15] MEDS: PREDNISOLONE ACET 0.12% L EYE SCH (22:35)
[2024-02-16] MEDS: Pantoprazole 40 MG VIAL IVP SCH (08:16)
[2024-02-16] MEDS: Enoxaparin 30 MG (0.3 mL) SYRINGE SC SCH (08:17)
[2024-02-16] MEDS: Aspirin 300 MG Suppository PR SCH (08:17)
[2024-02-16 08:56] LABS: Anion Gap 11 mmol/L (10-20); BUN (Urea Nitrogen) 12 mg/dL (8.4-25.7); Calc. Creatinine Clearance 63 mL/min (70-130); Calcium 8.6 mg/dL (7.8-10.44); Carbon Dioxide 28 mmol/L (22-29); Cardiac Risk 2.9 (Less than 4.5); Chloride 107 mmol/L (98-107); Cholesterol 141 mg/dl (< 200 Desired); Estimated GFR 96; Glucose 68 mg/dL (70-105); HDL Cholesterol 49 mg/dL (>60 Neg Risk); LDL Cholesterol, Calculated 71 mg/dL; Potassium 3.8 mmol/L (3.5-5.1); Sodium 142 mmol/L (136-145); Triglycerides 104 mg/dL (Less than 150)
[2024-02-16 09:06] VITALS: BMI 15.7
[2024-02-16] MEDS: Timolol 0.25% Ophth Soln 5 ml Bottle L EYE SCH (09:30)
[2024-02-16 09:53] LABS: #Basophils Less than 0.03 10x3/uL (0.0-0.2); %Basophils 0.1 % (0.0-1.0); %Eosinophils 0.6 % (0.0-10.0); %Lymphocytes 20.7 % (21.0-51.0); %Monocytes 13.8 % (0.0-10.0); %Neutrophils 64.6 % (42.0-75.0); Hematocrit 28.5 % (42.0-52.0); Hemoglobin 8.7 g/dL (14.0-18.0); Mean Corpuscular HGB CONC 30.5 g/dL (32.0-36.0); Mean Corpuscular Hemoglobin 30.2 pg (27.0-31.0); Platelet Count 285 10x3/uL (130-400); RBC Distribution Width 13.1 % (11.5-14.5); Red Blood Cell (RBC) Count 2.88 mill/uL (4.70-6.10)
[2024-02-16] MEDS: Atorvastatin Calcium 40 MG TAB PO SCH (20:38)
[2024-02-16] MEDS: Carvedilol 25 MG TAB PO SCH (20:39)
[2024-02-16] MEDS ORDERED: levETIRAcetam 500 MG TAB PO SCH (21:00)
[2024-02-17] MEDS ORDERED: Carvedilol 25 MG TAB PO SCH (08:00)
[2024-02-17] MEDS ORDERED: Pantoprazole DR 40 MG TAB PO SCH (09:00)
[2024-02-17] MEDS: Clopidogrel Bisulfate 75 MG TAB PO SCH (10:08)
[2024-02-17] MEDS: Carvedilol 25 MG TAB PO SCH (10:08)
[2024-02-17] MEDS: cefTRIAXone\\ROCEPHIN 2 GM in Sodium Chloride 0.9% 100 ML IVPB SCH (10:13)
[2024-02-18] MEDS: hydrALAZINE 20 MG/ML VIAL SLOW IVP PRN (01:21)
[2024-02-19] MEDS: Lisinopril 20 MG TAB PO SCH (09:05)
[2024-02-19] MEDS: NIFEdipine XL 60 MG ER.TAB PO SCH (09:06)
[2024-02-19] MEDS: Aspirin 81 mg Enteric Coated Tablet PO SCH (09:07)
[2024-02-19 12:04] VITALS: TEMP 97.6
[2024-02-19 12:48] VITALS: BP 112/67
== END 2024-02-19 17:04 | DRG 65 ==
LOC: ERS 14:10 → ERHOLD 15:34 → 2SE 18:16
PROVIDERS: ADMIT Family Medicine; ATTEND Family Medicine
PROC: 4A00X4Z Measurement of Central Nervous Electrical Activity, External Approach (ICD-10-PCS; principal; 2024-02-16)
PROC: 4A00X4Z Measurement of Central Nervous Electrical Activity, External Approach (ICD-10-PCS; 2024-02-19)
DX: I63.9 Cerebral infarction, unspecified (principal); I42.9 Cardiomyopathy, unspecified; N39.0 Urinary tract infection, site not specified; Z79.82 Long term (current) use of aspirin; Z79.84 Long term (current) use of oral hypoglycemic drugs; Z79.899 Other long term (current) drug therapy; I10 Essential (primary) hypertension; I25.10 Atherosclerotic heart disease of native coronary artery without angina pectoris; E11.9 Type 2 diabetes mellitus without complications; Z95.1 Presence of aortocoronary bypass graft; E78.5 Hyperlipidemia, unspecified; D64.9 Anemia, unspecified; R47.01 Aphasia; D72.829 Elevated white blood cell count, unspecified; G40.909 Epilepsy, unspecified, not intractable, without status epilepticus; R13.10 Dysphagia, unspecified
CPT/HCPCS: 36415; 36416; 70450; 70496; 70498; 70551; 71045; 74230; 80048; 80053; 80061; 80307; 81001; 83605; 84484; 85025; 85610; 85730; 93005; 94760; 95700; 95712; 95819; C9113; J0360; J0696; J1650; J1953; J3490; J7050; Q9967

== ENCOUNTER 2024-11-05 07:10 | Inpatient (IN) | payer OTHER, MEDICAID, MEDICARE ==
[2024-11-05 07:58] LABS: #Basophils Less than 0.03 10x3/uL (0.0-0.2); %Basophils 0.2 % (0.0-1.0); %Eosinophils 1.7 % (0.0-10.0); %Lymphocytes 20.8 % (21.0-51.0); %Monocytes 12.4 % (0.0-10.0); %Neutrophils 64.6 % (42.0-75.0); Hematocrit 29.7 % (42.0-52.0); Hemoglobin 9.6 g/dL (14.0-18.0); Mean Corpuscular HGB CONC 32.3 g/dL (32.0-36.0); Mean Corpuscular Hemoglobin 29.7 pg (27.0-31.0); Mean Platelet Volume 10.1 fL (7.4-10.4); Platelet Count 279 10x3/uL (130-400); Red Blood Cell (RBC) Count 3.23 mill/uL (4.70-6.10)
[2024-11-05 08:12] LABS: ALT (SGPT) 17 U/L (Less than 45); AST (SGOT) 29 U/L (11-34); Alkaline Phosphatase 48 U/L (40-110); Anion Gap 10 mmol/L (10-20); BUN (Urea Nitrogen) 12 mg/dL (8.4-25.7); Bilirubin, Total 0.4 mg/dL (0.3-1.2); Calc. Creatinine Clearance 0 mL/min (70-130); Calcium 8.8 mg/dL (7.8-10.44); Carbon Dioxide 27 mmol/L (22-29); Chloride 106 mmol/L (98-107); Estimated GFR 62; Globulin 3.3 g/dL (2.4-3.5); Glucose 166 mg/dL (70-105); Lipase 27 U/L (8-78); Protein, Total 6.9 g/dL (6.0-8.3); Sodium 139 mmol/L (136-145)
[2024-11-05 08:21] LABS: INR-International Normal Ratio 0.9; Prothrombin Time 12.6 sec (12.0-14.7)
[2024-11-05] MEDS ORDERED: Pantoprazole 40 MG VIAL ONE (08:21)
[2024-11-05 08:22] LABS: PTT 27.3 sec (22.9-36.1)
[2024-11-05 08:45] LABS: Albumin 3.6 g/dL (3.1-4.5)
[2024-11-05 08:46] LABS: Bacteria/HPF None Seen HPF (None Seen); Bilirubin Negative (Negative); Blood, Urine Negative (Negative); CAUTI Indications for Culture Pelvic or flank pain; Clarity Clear (Clear); Glucose, Urine (Dipstick) Normal (Negative); Ketone, Urine Negative (Negative); Leukocyte Negative Leu/uL (Negative); Nitrite Negative (Negative); Protein, Urine (Dipstick) 70 mg/dL (Neg-Trace); RBC/HPF 0-3 HPF (0-3); Specific Gravity, Urine 1.009 (1.002-1.036); Squamous Epithelial 0-3 HPF (0-3); Urobilinogen Normal mg/dL (Less than 2); WBC/HPF 0-3 HPF (0-3)
[2024-11-05 09:23] LABS: Urine Culture Reflex No No
[2024-11-05] MEDS ORDERED: Acetaminophen 325 MG TAB PO PRN (09:25)
[2024-11-05] MEDS: Lactated Ringer's 1,000 ML IV SCH (11:37)
[2024-11-05 14:03] LABS: Hemoglobin 9.5 g/dL (14.0-18.0); Mean Corpuscular HGB CONC 31.7 g/dL (32.0-36.0); Mean Corpuscular Hemoglobin 29.2 pg (27.0-31.0); Mean Corpuscular Volume 92.3 fL (78.0-98.0); Platelet Count 281 10x3/uL (130-400); RBC Distribution Width 12.1 % (11.5-14.5); Red Blood Cell (RBC) Count 3.25 mill/uL (4.70-6.10)
[2024-11-05] MEDS: FLU (Fluarix Triv) TS24-25(6MOS UP)/PF 45 MCG/0.5 ML Syringe IM ONE (14:28)
[2024-11-05] MEDS: Melatonin 3 MG TAB PO SCH (20:01)
[2024-11-05] MEDS: NIFEdipine XL 90 MG ER.TAB PO SCH (20:03)
[2024-11-05] MEDS: Pantoprazole 40 MG VIAL IVP SCH (20:04)
[2024-11-05] MEDS: Atorvastatin Calcium 40 MG TAB PO SCH (20:04)
[2024-11-05] MEDS: levETIRAcetam 500 MG TAB PO SCH (20:19)
[2024-11-05] MEDS ORDERED: Timolol 0.5% Ophth Soln 5 ml Bottle L EYE SCH (21:00)
[2024-11-05] MEDS: prednisoLONE 1% Ophth Susp 5 ml Bottle L EYE SCH (21:02)
[2024-11-05] MEDS: Dorzolamide HCl 2% Ophth (10 mL) Bottle L EYE SCH (21:03)
[2024-11-05] MEDS: Timolol 0.5% Ophth Soln 5 ml Bottle L EYE SCH (21:03)
[2024-11-05] MEDS: Brimonidine Tartrate 0.2% Ophth Soln 5 ml Bottle L EYE SCH (21:04)
[2024-11-06 06:37] LABS: #Basophils Less than 0.03 10x3/uL (0.0-0.2); %Basophils 0.1 % (0.0-1.0); %Eosinophils 0.9 % (0.0-10.0); %Lymphocytes 21.8 % (21.0-51.0); %Monocytes 13.5 % (0.0-10.0); %Neutrophils 63.4 % (42.0-75.0); Hematocrit 28.6 % (42.0-52.0); Hemoglobin 9.2 g/dL (14.0-18.0); Mean Corpuscular HGB CONC 32.2 g/dL (32.0-36.0); Mean Corpuscular Hemoglobin 29.9 pg (27.0-31.0); Mean Corpuscular Volume 92.9 fL (78.0-98.0); Mean Platelet Volume 10.3 fL (7.4-10.4); Platelet Count 265 10x3/uL (130-400); RBC Distribution Width 12.2 % (11.5-14.5); Red Blood Cell (RBC) Count 3.08 mill/uL (4.70-6.10)
[2024-11-06 07:00] LABS: ALT (SGPT) 15 U/L (Less than 45); AST (SGOT) 19 U/L (11-34); Albumin 3.2 g/dL (3.1-4.5); Alkaline Phosphatase 45 U/L (40-110); Anion Gap 9 mmol/L (10-20); BUN (Urea Nitrogen) 10 mg/dL (8.4-25.7); Calc. Creatinine Clearance 62 mL/min (70-130); Calcium 8.4 mg/dL (7.8-10.44); Carbon Dioxide 25 mmol/L (22-29); Chloride 107 mmol/L (98-107); Estimated GFR 75; Globulin 3.1 g/dL (2.4-3.5); Glucose 153 mg/dL (70-105); Iron 73 ug/dL (65-175); Iron Binding Capacity, Total 183 mcg/dL (261-462); Magnesium 1.8 mg/dL (1.6-2.6); Potassium 3.7 mmol/L (3.5-5.1); Protein, Total 6.3 g/dL (6.0-8.3); Sodium 137 mmol/L (136-145)
[2024-11-06 07:01] LABS: Iron 73 ug/dL (65-175); Iron Binding Capacity, Total 181 mcg/dL (261-462)
[2024-11-06 07:38] LABS: Ferritin 413.9 ng/mL (22-322)
[2024-11-06 07:40] LABS: Bilirubin, Total 0.5 mg/dL (0.3-1.2)
[2024-11-06] MEDS ORDERED: Dextrose 5% in Water 1,000 ML IV PRN (07:53)
[2024-11-06] MEDS ORDERED: Dextrose 50% Abboject 50 ML SYRINGE SLOW IVP PRN (07:53)
[2024-11-06] MEDS ORDERED: Insulin Lispro 100 UNIT/ML 10 ML VIAL SC PRN (07:53)
[2024-11-06] MEDS ORDERED: Glucagon 1 MG/ML KIT IM PRN (07:53)
[2024-11-06] MEDS: Sertraline 25 MG TAB PO SCH (08:46)
[2024-11-06] MEDS: Carvedilol 25 MG TAB PO SCH (08:46)
[2024-11-06] MEDS: Mirtazapine 15 MG TAB PO SCH (08:46)
[2024-11-06] MEDS ORDERED: Amlodipine 10 MG TAB PO SCH (09:00)
[2024-11-06] MEDS: GoLYTELY 4,000 ml Bottle PO SCH (16:56)
[2024-11-06] MEDS: Insulin Lispro 100 UNIT/ML 10 ML VIAL SC PRN (18:35)
[2024-11-07 08:24] LABS: #Basophils Less than 0.03 10x3/uL (0.0-0.2); %Basophils 0.1 % (0.0-1.0); %Eosinophils 0.6 % (0.0-10.0); %Lymphocytes 13.6 % (21.0-51.0); %Neutrophils 72.4 % (42.0-75.0); Hematocrit 30.2 % (42.0-52.0); Hemoglobin 9.6 g/dL (14.0-18.0); Mean Corpuscular HGB CONC 31.8 g/dL (32.0-36.0); Mean Corpuscular Hemoglobin 29.5 pg (27.0-31.0); Mean Corpuscular Volume 92.9 fL (78.0-98.0); Platelet Count 267 10x3/uL (130-400); RBC Distribution Width 12.3 % (11.5-14.5); Red Blood Cell (RBC) Count 3.25 mill/uL (4.70-6.10)
[2024-11-07 08:39] LABS: Anion Gap 10 mmol/L (10-20); BUN (Urea Nitrogen) 11 mg/dL (8.4-25.7); Calc. Creatinine Clearance 57 mL/min (70-130); Carbon Dioxide 26 mmol/L (22-29); Chloride 106 mmol/L (98-107); Potassium 3.8 mmol/L (3.5-5.1); Sodium 138 mmol/L (136-145)
[2024-11-07 08:40] LABS: Calcium 8.4 mg/dL (7.8-10.44); Estimated GFR 68; Glucose 141 mg/dL (70-105)
[2024-11-07 11:00] VITALS: BMI 19.9
[2024-11-07] MEDS: Ondansetron PF 4 MG/2 ML Vial IVP PRN (19:55)
[2024-11-08 05:34] LABS: #Basophils Less than 0.03 10x3/uL (0.0-0.2); %Basophils 0.1 % (0.0-1.0); %Eosinophils 1.2 % (0.0-10.0); %Lymphocytes 16.5 % (21.0-51.0); %Monocytes 13.4 % (0.0-10.0); %Neutrophils 68.4 % (42.0-75.0); Hematocrit 33.5 % (42.0-52.0); Hemoglobin 9.9 g/dL (14.0-18.0); Mean Corpuscular HGB CONC 29.6 g/dL (32.0-36.0); Mean Corpuscular Hemoglobin 29.9 pg (27.0-31.0); Mean Corpuscular Volume 101.2 fL (78.0-98.0); Mean Platelet Volume 9.8 fL (7.4-10.4); Platelet Count 252 10x3/uL (130-400); RBC Distribution Width 12.1 % (11.5-14.5); Red Blood Cell (RBC) Count 3.31 mill/uL (4.70-6.10)
[2024-11-08 06:02] LABS: Anion Gap 14 mmol/L (10-20); BUN (Urea Nitrogen) 9 mg/dL (8.4-25.7); Calc. Creatinine Clearance 53 mL/min (70-130); Calcium 8.3 mg/dL (7.8-10.44); Carbon Dioxide 22 mmol/L (22-29); Chloride 107 mmol/L (98-107); Estimated GFR 61; Glucose 138 mg/dL (70-105); Potassium 3.9 mmol/L (3.5-5.1); Sodium 139 mmol/L (136-145)
[2024-11-08] MEDS: GoLYTELY 4,000 ml Bottle PO SCH (06:41)
[2024-11-08] MEDS ORDERED: Lidocaine 1% PF 5 ML VIAL ONE (10:00)
[2024-11-08] MEDS ORDERED: PROPOFOL 40 ML ONE (10:00)
[2024-11-08] MEDS: Lactated Ringer's 1,000 ML IV SCH (10:59)
[2024-11-08] MEDS ORDERED: Ondansetron HCl/PF 4 MG/2 ML Vial IVP PRN (11:36)
[2024-11-08] MEDS ORDERED: Promethazine HCl 25 MG/ML VIAL IM PRN (11:36)
[2024-11-08 16:12] VITALS: BP 176/83; TEMP 97.6
[2024-11-11] MEDS ORDERED: cloNIDine 0.2mg/24 Hour PATCH TD SCH (09:00)
== END 2024-11-08 18:46 | disposition home or self-care (01) | DRG 378 ==
LOC: ERS 07:10 → SUATTDRO 07:10 → SURG A 10:59 → OBSVTOIN 11-06 18:49
PROVIDERS: ADMIT Family Medicine; ATTEND Internal Medicine
PROC: 0DJ08ZZ Inspection of Upper Intestinal Tract, Via Natural or Artificial Opening Endoscopic (ICD-10-PCS; principal; 2024-11-06)
PROC: 0DJD8ZZ Inspection of Lower Intestinal Tract, Via Natural or Artificial Opening Endoscopic (ICD-10-PCS; 2024-11-06)
DX: K92.1 Melena (principal); I69.354 Hemiplegia and hemiparesis following cerebral infarction affecting left non-dominant side; N17.9 Acute kidney failure, unspecified; K31.4 Gastric diverticulum; D63.8 Anemia in other chronic diseases classified elsewhere; E11.9 Type 2 diabetes mellitus without complications; G40.909 Epilepsy, unspecified, not intractable, without status epilepticus; I25.10 Atherosclerotic heart disease of native coronary artery without angina pectoris; I10 Essential (primary) hypertension; Z79.82 Long term (current) use of aspirin; Z79.01 Long term (current) use of anticoagulants; Z95.1 Presence of aortocoronary bypass graft
CPT/HCPCS: 36415; 36416; 80048; 80053; 81001; 82274; 82607; 82728; 83540; 83550; 83690; 83735; 85025; 85046; 85610; 85730; 86850; 86900; 86901; 93005; 93010; 96376; G0378; J1815; J2405; J2470; J2704; J7120

== ENCOUNTER 2025-05-10 09:31 | Emergency (ER) | payer OTHER ==
[2025-05-10 10:10] LABS: #Basophils Less than 0.03 10x3/uL (0.0-0.2); #Eosinophils 0.03 10x3/uL (0.0-0.7); #Monocytes 1.31 10x3/uL (0.11-0.59); #Neutrophils 8.17 10x3/uL (1.40-6.50); %Basophils 0.2 % (0.0-1.0); %Eosinophils 0.3 % (0.0-10.0); %Lymphocytes 13.2 % (21.0-51.0); %Monocytes 11.9 % (0.0-10.0); %Neutrophils 74.1 % (42.0-75.0); Hematocrit 30.6 % (42.0-52.0); Hemoglobin 9.7 g/dL (14.0-18.0); Mean Corpuscular Hemoglobin 29.9 pg (27.0-31.0); Mean Corpuscular Volume 94.4 fL (78.0-98.0); Platelet Count 279 10x3/uL (130-400); Red Blood Cell (RBC) Count 3.24 mill/uL (4.70-6.10); White Blood Cell (WBC) Count 11.02 10x3/uL (4.8-10.8)
[2025-05-10 10:33] LABS: ALT (SGPT) 20 U/L (Less than 45); AST (SGOT) 29 U/L (11-34); Albumin 3.5 g/dL (3.1-4.5); Alkaline Phosphatase 59 U/L (40-110); Anion Gap 15 mmol/L (10-20); BUN (Urea Nitrogen) 23 mg/dL (8.4-25.7); Bilirubin, Total 0.4 mg/dL (0.3-1.2); Calc. Creatinine Clearance 0 mL/min (70-130); Calcium 8.8 mg/dL (7.8-10.44); Carbon Dioxide 21 mmol/L (22-29); Chloride 114 mmol/L (98-107); Globulin 4.0 g/dL (2.4-3.5); Glucose 220 mg/dL (70-105); Magnesium 2.3 mg/dL (1.6-2.6); Potassium 4.0 mmol/L (3.5-5.1)
[2025-05-10 10:36] LABS: Troponin I Less than 0.010 ng/mL (< 0.028)
[2025-05-10 10:39] LABS: Sodium 146 mmol/L (136-145)
== END 2025-05-10 14:26 ==
LOC: ERS 09:31
DX: J06.9 Acute upper respiratory infection, unspecified (principal); D53.9 Nutritional anemia, unspecified; I12.9 Hypertensive chronic kidney disease with stage 1 through stage 4 chronic kidney disease, or unspecified chronic kidney disease; E11.22 Type 2 diabetes mellitus with diabetic chronic kidney disease; N18.9 Chronic kidney disease, unspecified; E11.65 Type 2 diabetes mellitus with hyperglycemia; E87.0 Hyperosmolality and hypernatremia; I25.10 Atherosclerotic heart disease of native coronary artery without angina pectoris; Z79.82 Long term (current) use of aspirin; Z79.4 Long term (current) use of insulin; Z79.02 Long term (current) use of antithrombotics/antiplatelets; Z79.84 Long term (current) use of oral hypoglycemic drugs; Z79.899 Other long term (current) drug therapy
CPT/HCPCS: 36415; 51701; 71045; 80053; 83605; 83735; 84484; 85025; 87040; 87426; 93005

== ENCOUNTER 2025-05-11 16:06 | Inpatient (IN) | payer OTHER ==
[2025-05-11 17:20] LABS: #Basophils Less than 0.03 10x3/uL (0.0-0.2); #Eosinophils 0.18 10x3/uL (0.0-0.7); #Monocytes 1.45 10x3/uL (0.11-0.59); #Neutrophils 9.02 10x3/uL (1.40-6.50); %Basophils 0.1 % (0.0-1.0); %Eosinophils 1.4 % (0.0-10.0); %Lymphocytes 14.4 % (21.0-51.0); %Monocytes 11.6 % (0.0-10.0); %Neutrophils 72.1 % (42.0-75.0); Hematocrit 28.0 % (42.0-52.0); Hemoglobin 9.0 g/dL (14.0-18.0); Mean Corpuscular Hemoglobin 29.7 pg (27.0-31.0); Mean Corpuscular Volume 92.4 fL (78.0-98.0); Platelet Count 262 10x3/uL (130-400); Red Blood Cell (RBC) Count 3.03 mill/uL (4.70-6.10); White Blood Cell (WBC) Count 12.51 10x3/uL (4.8-10.8)
[2025-05-11] MEDS ORDERED: Fluorescein Opthalmic Strip ONE (17:20)
[2025-05-11] MEDS ORDERED: Proparacaine 0.5% Opth 15 ML BOT ONE (17:20)
[2025-05-11 17:30] LABS: Lipase 34 U/L (8-78)
[2025-05-11 17:31] LABS: ALT (SGPT) 32 U/L (Less than 45); AST (SGOT) 41 U/L (11-34); Albumin 3.2 g/dL (3.1-4.5); Alkaline Phosphatase 55 U/L (40-110); Anion Gap 12 mmol/L (10-20); BUN (Urea Nitrogen) 21 mg/dL (8.4-25.7); Bilirubin, Total 0.4 mg/dL (0.3-1.2); Calc. Creatinine Clearance 0 mL/min (70-130); Calcium 8.1 mg/dL (7.8-10.44); Carbon Dioxide 24 mmol/L (22-29); Chloride 110 mmol/L (98-107); Globulin 3.6 g/dL (2.4-3.5); Glucose 251 mg/dL (70-105); Potassium 3.7 mmol/L (3.5-5.1); Sodium 142 mmol/L (136-145)
[2025-05-11 17:32] LABS: Acetaminophen Less than 10 mcg/mL (Less than 10); Salicylate Less than 8.0 mg/dL (Less than 8.0)
[2025-05-11 17:36] LABS: Troponin I 0.010 ng/mL (< 0.028)
[2025-05-11 18:55] LABS: Bacteria/HPF None Seen HPF (None Seen); CAUTI Indications for Culture Alt mental st,lethar; Glucose, Urine (Dipstick) Normal (Negative); Leukocyte Negative Leu/uL (Negative); Protein, Urine (Dipstick) 100 mg/dL (Neg-Trace); RBC/HPF 0-3 HPF (0-3); Specific Gravity, Urine 1.013 (1.002-1.036); WBC/HPF 0-3 HPF (0-3)
[2025-05-11 19:01] LABS: Urine Culture Reflex No No
[2025-05-11 19:06] LABS: Cocaine Metabolite Screen Negative (Negative); THC/Cannabinoid Screen Negative (Negative); Tricyclic Screen Negative (Negative)
[2025-05-11] MEDS ORDERED: Vancomycin (BATCH) 1.25 GM Premix BAG IVPB SCH (22:30)
[2025-05-11] MEDS ORDERED: Acetaminophen 325 MG TAB PO PRN (23:46)
[2025-05-11] MEDS ORDERED: Ondansetron PF 4 MG/2 ML Vial IVP PRN (23:46)
[2025-05-12 00:36] VITALS: BMI 17.1
[2025-05-12] MEDS: Vancomycin 1.25 GM / NS 250 ML VIAL-2-BAG IVPB SCH (00:48)
[2025-05-12 05:26] LABS: #Basophils Less than 0.03 10x3/uL (0.0-0.2); #Eosinophils 0.23 10x3/uL (0.0-0.7); #Monocytes 1.43 10x3/uL (0.11-0.59); #Neutrophils 6.90 10x3/uL (1.40-6.50); %Basophils 0.2 % (0.0-1.0); %Eosinophils 2.1 % (0.0-10.0); %Lymphocytes 22.1 % (21.0-51.0); %Monocytes 12.8 % (0.0-10.0); %Neutrophils 61.6 % (42.0-75.0); Hematocrit 28.0 % (42.0-52.0); Hemoglobin 8.6 g/dL (14.0-18.0); Mean Corpuscular Hemoglobin 29.5 pg (27.0-31.0); Mean Corpuscular Volume 95.9 fL (78.0-98.0); Platelet Count 251 10x3/uL (130-400); Red Blood Cell (RBC) Count 2.92 mill/uL (4.70-6.10); White Blood Cell (WBC) Count 11.18 10x3/uL (4.8-10.8)
[2025-05-12 05:51] LABS: Anion Gap 12 mmol/L (10-20); BUN (Urea Nitrogen) 14 mg/dL (8.4-25.7); Calc. Creatinine Clearance 60 mL/min (70-130); Calcium 8.2 mg/dL (7.8-10.44); Carbon Dioxide 22 mmol/L (22-29); Chloride 112 mmol/L (98-107); Glucose 74 mg/dL (70-105); Potassium 3.5 mmol/L (3.5-5.1); Sodium 142 mmol/L (136-145)
[2025-05-12] MEDS: Enoxaparin 30 MG (0.3 mL) SYRINGE SC SCH (08:53)
[2025-05-12] MEDS: Aspirin 81 mg Enteric Coated Tablet PO SCH (08:53)
[2025-05-12] MEDS: cefTRIAXone\\ROCEPHIN 2 GM in Sodium Chloride 0.9% 100 ML IVPB SCH (08:54)
[2025-05-12] MEDS: Azithromycin 500 MG in Sodium Chloride 0.9% 250 ML 250 ML IVPB SCH (08:56)
[2025-05-12] MEDS: levETIRAcetam 500 MG TAB PO SCH ×2 (08:57→21:24)
[2025-05-12 10:13] VITALS: BMI 17.1
[2025-05-12] MEDS: Dorzolamide HCl 2% Ophth (10 mL) Bottle L EYE SCH (15:18)
[2025-05-12] MEDS: Ferrous Sulfate 325 MG TAB PO SCH (17:13)
[2025-05-12] MEDS: Mirtazapine 15 MG TAB PO SCH (21:24)
[2025-05-12] MEDS: NIFEdipine XL 90 MG ER.TAB PO SCH (21:24)
[2025-05-12] MEDS: Brimonidine Tartrate 0.2% Ophth Soln 5 ml Bottle L EYE SCH (21:25)
[2025-05-13] MEDS: Guaifenesin DM 100-10/5 ML UDCUP PO PRN (01:00)
[2025-05-13 03:49] LABS: #Basophils Less than 0.03 10x3/uL (0.0-0.2); #Eosinophils 0.18 10x3/uL (0.0-0.7); #Monocytes 1.12 10x3/uL (0.11-0.59); #Neutrophils 7.11 10x3/uL (1.40-6.50); %Basophils 0.2 % (0.0-1.0); %Eosinophils 1.7 % (0.0-10.0); %Lymphocytes 18.6 % (21.0-51.0); %Monocytes 10.8 % (0.0-10.0); %Neutrophils 68.4 % (42.0-75.0); Hematocrit 26.1 % (42.0-52.0); Hemoglobin 8.2 g/dL (14.0-18.0); Mean Corpuscular Hemoglobin 29.5 pg (27.0-31.0); Mean Corpuscular Volume 93.9 fL (78.0-98.0); Platelet Count 239 10x3/uL (130-400); Red Blood Cell (RBC) Count 2.78 mill/uL (4.70-6.10); White Blood Cell (WBC) Count 10.39 10x3/uL (4.8-10.8)
[2025-05-13 04:07] LABS: ALT (SGPT) 25 U/L (Less than 45); AST (SGOT) 28 U/L (11-34); Albumin 2.8 g/dL (3.1-4.5); Alkaline Phosphatase 49 U/L (40-110); Anion Gap 12 mmol/L (10-20); BUN (Urea Nitrogen) 13 mg/dL (8.4-25.7); Bilirubin, Total 0.3 mg/dL (0.3-1.2); Calc. Creatinine Clearance 71 mL/min (70-130); Calcium 8.1 mg/dL (7.8-10.44); Carbon Dioxide 24 mmol/L (22-29); Chloride 113 mmol/L (98-107); Globulin 3.6 g/dL (2.4-3.5); Glucose 100 mg/dL (70-105); Potassium 3.7 mmol/L (3.5-5.1); Sodium 145 mmol/L (136-145)
[2025-05-13] MEDS: Glimepiride 2 MG TAB PO SCH (08:27)
[2025-05-13] MEDS: Multivitamin W/ Minerals 1 TAB PO SCH (08:28)
[2025-05-13] MEDS: Pantoprazole 40 MG DR.TAB PO SCH (08:28)
[2025-05-13] MEDS: Mirtazapine 15 MG TAB PO SCH (08:28)
[2025-05-13] MEDS: Aspirin 81 mg Enteric Coated Tablet PO SCH (08:28)
[2025-05-14 05:54] LABS: #Basophils Less than 0.03 10x3/uL (0.0-0.2); #Eosinophils 0.21 10x3/uL (0.0-0.7); #Monocytes 0.90 10x3/uL (0.11-0.59); #Neutrophils 6.45 10x3/uL (1.40-6.50); %Basophils 0.0 % (0.0-1.0); %Eosinophils 2.2 % (0.0-10.0); %Lymphocytes 19.3 % (21.0-51.0); %Monocytes 9.6 % (0.0-10.0); %Neutrophils 68.6 % (42.0-75.0); Hematocrit 26.2 % (42.0-52.0); Hemoglobin 8.4 g/dL (14.0-18.0); Mean Corpuscular Hemoglobin 28.9 pg (27.0-31.0); Mean Corpuscular Volume 90.0 fL (78.0-98.0); Platelet Count 263 10x3/uL (130-400); Red Blood Cell (RBC) Count 2.91 mill/uL (4.70-6.10); White Blood Cell (WBC) Count 9.40 10x3/uL (4.8-10.8)
[2025-05-14 06:16] LABS: Anion Gap 11 mmol/L (10-20); BUN (Urea Nitrogen) 10 mg/dL (8.4-25.7); Calc. Creatinine Clearance 70 mL/min (70-130); Calcium 8.1 mg/dL (7.8-10.44); Carbon Dioxide 23 mmol/L (22-29); Chloride 115 mmol/L (98-107); Glucose 102 mg/dL (70-105); Potassium 3.6 mmol/L (3.5-5.1); Sodium 145 mmol/L (136-145)
[2025-05-14] MEDS: Azithromycin 250 MG TAB PO SCH (08:22)
[2025-05-14] MEDS ORDERED: Glucagon 1 MG/ML KIT IM PRN (12:59)
[2025-05-14] MEDS ORDERED: Dextrose 50% Abboject 50 ML SYRINGE SLOW IVP PRN (12:59)
[2025-05-14] MEDS: levETIRAcetam 500 mg/5 ml Oral Solution PO SCH (21:21)
[2025-05-15 05:05] LABS: #Basophils Less than 0.03 10x3/uL (0.0-0.2); #Eosinophils 0.28 10x3/uL (0.0-0.7); #Monocytes 1.12 10x3/uL (0.11-0.59); #Neutrophils 7.45 10x3/uL (1.40-6.50); %Basophils 0.1 % (0.0-1.0); %Eosinophils 2.7 % (0.0-10.0); %Lymphocytes 15.0 % (21.0-51.0); %Monocytes 10.7 % (0.0-10.0); %Neutrophils 71.1 % (42.0-75.0); Hematocrit 27.7 % (42.0-52.0); Hemoglobin 8.6 g/dL (14.0-18.0); Mean Corpuscular Hemoglobin 28.7 pg (27.0-31.0); Mean Corpuscular Volume 92.3 fL (78.0-98.0); Platelet Count 291 10x3/uL (130-400); Red Blood Cell (RBC) Count 3.00 mill/uL (4.70-6.10); White Blood Cell (WBC) Count 10.47 10x3/uL (4.8-10.8)
[2025-05-15 05:20] LABS: Anion Gap 13 mmol/L (10-20); BUN (Urea Nitrogen) 8 mg/dL (8.4-25.7); Calc. Creatinine Clearance 76 mL/min (70-130); Calcium 8.5 mg/dL (7.8-10.44); Carbon Dioxide 23 mmol/L (22-29); Chloride 114 mmol/L (98-107); Glucose 99 mg/dL (70-105); Potassium 3.9 mmol/L (3.5-5.1); Sodium 146 mmol/L (136-145)
[2025-05-16 05:30] LABS: #Basophils Less than 0.03 10x3/uL (0.0-0.2); #Eosinophils 0.40 10x3/uL (0.0-0.7); #Monocytes 1.22 10x3/uL (0.11-0.59); #Neutrophils 7.63 10x3/uL (1.40-6.50); %Basophils 0.1 % (0.0-1.0); %Eosinophils 3.7 % (0.0-10.0); %Lymphocytes 15.2 % (21.0-51.0); %Monocytes 11.1 % (0.0-10.0); %Neutrophils 69.6 % (42.0-75.0); Hematocrit 28.3 % (42.0-52.0); Hemoglobin 9.0 g/dL (14.0-18.0); Mean Corpuscular Hemoglobin 29.0 pg (27.0-31.0); Mean Corpuscular Volume 91.3 fL (78.0-98.0); Platelet Count 343 10x3/uL (130-400); Red Blood Cell (RBC) Count 3.10 mill/uL (4.70-6.10); White Blood Cell (WBC) Count 10.95 10x3/uL (4.8-10.8)
[2025-05-16 05:47] LABS: Anion Gap 12 mmol/L (10-20); BUN (Urea Nitrogen) 8 mg/dL (8.4-25.7); Calc. Creatinine Clearance 74 mL/min (70-130); Calcium 8.6 mg/dL (7.8-10.44); Carbon Dioxide 23 mmol/L (22-29); Chloride 113 mmol/L (98-107); Glucose 105 mg/dL (70-105); Potassium 3.8 mmol/L (3.5-5.1); Sodium 144 mmol/L (136-145)
[2025-05-17 08:53] VITALS: BP 148/84; TEMP 97.8
[2025-05-17] MEDS: Carvedilol 6.25 MG TAB PO SCH ×2 (10:09→13:11)
[2025-05-17 12:15] LABS: #Basophils Less than 0.03 10x3/uL (0.0-0.2); #Eosinophils 0.25 10x3/uL (0.0-0.7); #Monocytes 0.89 10x3/uL (0.11-0.59); #Neutrophils 7.57 10x3/uL (1.40-6.50); %Basophils 0.2 % (0.0-1.0); %Eosinophils 2.5 % (0.0-10.0); %Lymphocytes 11.2 % (21.0-51.0); %Monocytes 9.0 % (0.0-10.0); %Neutrophils 76.8 % (42.0-75.0); Hematocrit 31.8 % (42.0-52.0); Hemoglobin 9.9 g/dL (14.0-18.0); Mean Corpuscular Hemoglobin 29.7 pg (27.0-31.0); Mean Corpuscular Volume 95.5 fL (78.0-98.0); Platelet Count 350 10x3/uL (130-400); Red Blood Cell (RBC) Count 3.33 mill/uL (4.70-6.10); White Blood Cell (WBC) Count 9.87 10x3/uL (4.8-10.8)
[2025-05-17 12:33] LABS: Anion Gap 11 mmol/L (10-20); BUN (Urea Nitrogen) 11 mg/dL (8.4-25.7); Calc. Creatinine Clearance 62 mL/min (70-130); Calcium 9.2 mg/dL (7.8-10.44); Carbon Dioxide 25 mmol/L (22-29); Chloride 108 mmol/L (98-107); Glucose 221 mg/dL (70-105); Potassium 4.2 mmol/L (3.5-5.1); Sodium 140 mmol/L (136-145)
[2025-05-17] MEDS ORDERED: Carvedilol 6.25 MG TAB PO SCH (17:00)
[2025-05-19] MEDS ORDERED: cloNIDine 0.2mg/24 Hour PATCH TD SCH (09:00)
== END 2025-05-17 15:37 | DRG 177 ==
LOC: ERS 16:06 → T4-A 23:10 → OBSVTOIN 05-12 14:59
PROVIDERS: ADMIT Internal Medicine; ATTEND Student in an Organized Health Care Education/Training Program
DX: J69.0 Pneumonitis due to inhalation of food and vomit (principal); E43 Unspecified severe protein-calorie malnutrition; G93.41 Metabolic encephalopathy; I42.9 Cardiomyopathy, unspecified; N17.9 Acute kidney failure, unspecified; I69.353 Hemiplegia and hemiparesis following cerebral infarction affecting right non-dominant side; Z68.1 Body mass index [BMI] 19.9 or less, adult; E87.0 Hyperosmolality and hypernatremia; J15.9 Unspecified bacterial pneumonia; E86.0 Dehydration; I69.320 Aphasia following cerebral infarction; I10 Essential (primary) hypertension; E11.9 Type 2 diabetes mellitus without complications; I25.10 Atherosclerotic heart disease of native coronary artery without angina pectoris; D64.9 Anemia, unspecified; K21.9 Gastro-esophageal reflux disease without esophagitis; E78.5 Hyperlipidemia, unspecified; G40.909 Epilepsy, unspecified, not intractable, without status epilepticus; Z79.899 Other long term (current) drug therapy; Z95.1 Presence of aortocoronary bypass graft; J06.9 Acute upper respiratory infection, unspecified; D53.9 Nutritional anemia, unspecified; I12.9 Hypertensive chronic kidney disease with stage 1 through stage 4 chronic kidney disease, or unspecified chronic kidney disease; E11.22 Type 2 diabetes mellitus with diabetic chronic kidney disease; N18.9 Chronic kidney disease, unspecified; E11.65 Type 2 diabetes mellitus with hyperglycemia; Z79.82 Long term (current) use of aspirin; Z79.4 Long term (current) use of insulin; Z79.02 Long term (current) use of antithrombotics/antiplatelets; Z79.84 Long term (current) use of oral hypoglycemic drugs
CPT/HCPCS: 36415; 36416; 51701; 70450; 71045; 71275; 74230; 80048; 80053; 80306; 80307; 81001; 83605; 83690; 83735; 83880; 84443; 84484; 85025; 87040; 87426; 93005; 96365; 96367; 96372; 96375; G0378; J0456; J0696; J1650; J1815; J2543; J3373; J7030; J7042; J7050; Q9967